=== PATIENT | male | born 1935 | race Caucasian/White ===

== ENCOUNTER 2017-05-12 05:56 | Inpatient (IN) | payer MEDICARE, OTHER ==
[2017-05-12] MEDS: FUROSEMIDE 40 MG INJ IV ×2 (06:48→17:48)
[2017-05-12] MEDS: NITROGLYCERIN 2% 1 GM OINT PKT TD (06:48)
[2017-05-12 07:09] LABS: ADD MAN DIFF? NO
[2017-05-12 07:11] LABS: WHITE BLOOD COUNT 7.5 10^3/ul (4.8-10.8)
[2017-05-12 07:11] LABS: ABNORMAL IP MESSAGE 1; BASOPHILS % 0.3 % (0.0-2.0); HEMATOCRIT 29.4 % (42.0-52.0); HEMOGLOBIN 9.6 g/dl (14.0-18.0); LYMPHOCYTES # 0.6 10^3/ul (0.8-2.9); LYMPHOCYTES % 8.5 % (15.0-51.0); MEAN CORPUSCULAR HEMOGLOBIN 29.4 pg (29.0-33.0); MEAN CORPUSCULAR HGB CONC 32.7 g/dl (32.0-37.0); MEAN CORPUSCULAR VOLUME 89.9 fl (82.0-101.0); MEAN PLATELET VOLUME 11.6 fl (7.4-10.4); MONOCYTE # 0.6 10^3/ul (0.3-0.9); NEUTROPHIL # 6.3 10^3/ul (1.6-7.5); NEUTROPHILS % 82.8 % (39.0-77.0); PLATELET COUNT 91 10^3/UL (140-415); POSITIVE DIFF @See below; RED BLOOD COUNT 3.27 10^6/ul (4.70-6.10); RED CELL DISTRIBUTION WIDTH 15.3 % (11.5-14.5)
[2017-05-12 07:35] LABS: LACTIC ACID 1.7 mmol/L (0.5-2.0)
[2017-05-12] MEDS: ALBUTEROL 0.083% (NEB) 2.5 MG/3 ML AMP INH (07:36)
[2017-05-12 07:37] LABS: ADD UMIC NO; UR ASCORBIC ACID 40 mg/dL (NEGATIVE); UR BILIRUBIN (Dip) NEGATIVE (NEGATIVE); UR BLOOD (Dip) NEGATIVE (NEGATIVE); UR CLARITY SLIGHTLY CLOUDY (CLEAR); UR COLOR YELLOW (YELLOW); UR GLUCOSE (Dip) 2+ mg/dL (NEGATIVE); UR KETONES (Dip) TRACE mg/dL (NEGATIVE); UR LEUKOCYTE ESTERASE (Dip) NEGATIVE Leu/ul (NEGATIVE); UR NITRITE (Dip) NEGATIVE (NEGATIVE); UR RBC 1 /HPF (0-5); UR SPECIFIC GRAVITY (Dip) 1.015 (1.003-1.030); UR TOTAL PROTEIN (Dip) NEGATIVE (NEGATIVE); UR UROBILINOGEN (Dip) NEGATIVE (NEGATIVE); UR WBC 1 /HPF (0-5)
[2017-05-12 07:38] LABS: ALANINE AMINOTRANSFERASE 57 IU/L (13-69); ALBUMIN 3.6 g/dl (3.3-4.9); ALBUMIN/GLOBULIN RATIO 1.12; ALKALINE PHOSPHATASE 68 IU/L (42-121); ANION GAP 15 (8-16); ASPARTATE AMINO TRANSFERASE 54 IU/L (15-46); BILIRUBIN,INDIRECT 0.1 mg/dl (0-1.1); BILIRUBIN,TOTAL 0.1 mg/dl (0.2-1.3); BLOOD UREA NITROGEN 37 mg/dl (7-20); CALCIUM 8.2 mg/dl (8.4-10.2); CARBON DIOXIDE 24 mmol/L (21-31); CHLORIDE 104 mmol/L (97-110); CREATININE 1.53 mg/dl (0.61-1.24); GLUCOSE 261 mg/dl (70-220); SODIUM 138 mmol/L (135-144); TOTAL PROTEIN 6.8 g/dl (6.1-8.1)
[2017-05-12] MEDS: CEFTRIAXONE 1 GM/50 ML (PMX) 50 ML IVPB (07:43)
[2017-05-12 07:44] LABS: INR 1.32; PROTIME 16.6 Sec (11.9-14.9); PT RATIO 1.3
[2017-05-12 07:45] LABS: PARTIAL THROMBOPLASTIN TIME 42.5 Sec (25.0-35.0)
[2017-05-12 08:02] LABS: TROPONIN-I < 0.012 ng/ml (0.00-0.12)
[2017-05-12 08:22] LABS: B-TYPE NATRIURETIC PEPTIDE 1610 PG/ML (0-450)
[2017-05-12] MEDS: OSELTAMIVIR 75 MG CAP PO ×2 (08:41→20:44)
[2017-05-12] MEDS ORDERED: AMIODARONE 200 MG TAB PO (09:30)
[2017-05-12] MEDS ORDERED: NACL 0.9% 3 ML SYG IV (10:00)
[2017-05-12] MEDS ORDERED: DEXTROSE 50% 50 ML SYRINGE IV ×2 (10:00)
[2017-05-12] MEDS ORDERED: ACETAMINOPHEN 325 MG TAB PO (10:00)
[2017-05-12] MEDS ORDERED: BISACODYL (EC) 5 MG TAB PO (10:00)
[2017-05-12] MEDS ORDERED: HYDROCODONE/APAP (5/325) TAB PO (10:00)
[2017-05-12] MEDS ORDERED: GLUCOSE GEL 15 GRAM TUBE BUCCAL (10:00)
[2017-05-12] MEDS ORDERED: GLUCOSE GEL 15 GRAM TUBE PO ×2 (10:00)
[2017-05-12] MEDS ORDERED: morphine 2 MG INJ IV (10:00)
[2017-05-12] MEDS ORDERED: GLUCAGON 1 MG INJ IM (10:00)
[2017-05-12] MEDS ORDERED: ONDANSETRON 4 MG INJ IV (10:00)
[2017-05-12] MEDS: SERTRALINE 50 MG TAB PO (10:04)
[2017-05-12] MEDS: METOPROLOL 50 MG TAB PO ×2 (10:05→20:50)
[2017-05-12 10:12] LABS: ANISOCYTOSIS 1+ (0-0); BAND NEUTROPHILS #M 0.6 10^3/ul (0.0-0.6); BAND NEUTROPHILS % (M) 9 % (0-4); GIANT THROMBO% (M) 1 % (0-0); LYMPHOCYTES #M 0.2 10^3/ul (0.8-2.9); LYMPHOCYTES % (M) 3 % (15-51); MICROCYTOSIS 1+ (0-0); MONOCYTE #M 0.9 10^3/ul (0.3-0.9); MONOCYTES % (M) 13 % (0-11); PLATELET ESTIMATE DECREASED; POLYCHROMASIA 3+ (0-0); REACTIVE LYMPHOCYTES #M 0.1 10^3/ul (0.0-0.0); REACTIVE LYMPHOCYTES% (M) 2 % (0-0); SEG NEUT #M 5.5 10^3/ul (1.7-7.5); SEGMENTED NEUTROPHILS (M) % 73 % (39-77); SMUDGE%M 3 % (0-0)
[2017-05-12 10:38] LABS: LACTIC ACID 0.9 mmol/L (0.5-2.0)
[2017-05-12 10:39] LABS: URIC ACID 6.9 mg/dl (3.1-7.9)
[2017-05-12 10:55] LABS: SODIUM,URINE RANDOM 103 mmol/L (30-90)
[2017-05-12 10:55] LABS: POTASSIUM,URINE RANDOM 62.7 mmol/L (25-125)
[2017-05-12 10:59] LABS: CREATININE,URINE RANDOM 66.63 mg/dl (20-370)
[2017-05-12] MEDS: INSULIN ASPART [NOVOLOG] 3 ML PEN SC ×3 (12:00→20:43)
[2017-05-12] MEDS: GABAPENTIN 100 MG CAP GTB ×2 (12:29→20:38)
[2017-05-12] MEDS: ATORVASTATIN 20 MG TAB PO (20:38)
[2017-05-12] MEDS: APIXABAN 5 MG TABLET PO (20:39)
[2017-05-12] MEDS: AMIODARONE 200 MG TAB PO ×2 (20:39→20:52)
[2017-05-12] MEDS: INSULIN GLARGINE [LANtus] 3 ML PEN SC (20:41)
[2017-05-12] MEDS ORDERED: TAMSULOSIN (SR) 0.4 MG CAP PO (21:00)
[2017-05-13] MEDS: LORAZEPAM 2 MG INJ IV (02:04)
[2017-05-13] MEDS: ACCU-CHEK XX (02:06)
[2017-05-13] MEDS: FUROSEMIDE 40 MG INJ IV ×2 (06:36→17:18)
[2017-05-13] MEDS: LEVOTHYROXINE 25 MCG TAB PO (06:37)
[2017-05-13 06:44] LABS: ADD MAN DIFF? NO
[2017-05-13 06:54] LABS: ABNORMAL IP MESSAGE 1; BASOPHILS % 0.3 % (0.0-2.0); EOSINOPHILS % 0.3 % (0.0-7.0); HEMATOCRIT 26.8 % (42.0-52.0); HEMOGLOBIN 8.8 g/dl (14.0-18.0); LYMPHOCYTES # 1.2 10^3/ul (0.8-2.9); LYMPHOCYTES % 15.4 % (15.0-51.0); MEAN CORPUSCULAR HEMOGLOBIN 29.2 pg (29.0-33.0); MEAN CORPUSCULAR HGB CONC 32.8 g/dl (32.0-37.0); MEAN PLATELET VOLUME 11.4 fl (7.4-10.4); MONOCYTE # 0.8 10^3/ul (0.3-0.9); MONOCYTES % 10.4 % (0.0-11.0); NEUTROPHIL # 5.5 10^3/ul (1.6-7.5); NEUTROPHILS % 72.9 % (39.0-77.0); PLATELET COUNT 87 10^3/UL (140-415); POSITIVE DIFF @See below; RED BLOOD COUNT 3.01 10^6/ul (4.70-6.10); RED CELL DISTRIBUTION WIDTH 15.4 % (11.5-14.5)
[2017-05-13 06:54] LABS: WHITE BLOOD COUNT 7.5 10^3/ul (4.8-10.8)
[2017-05-13 07:20] LABS: ALANINE AMINOTRANSFERASE 364 IU/L (13-69); ALBUMIN 3.1 g/dl (3.3-4.9); ALBUMIN/GLOBULIN RATIO 1.06; ALKALINE PHOSPHATASE 53 IU/L (42-121); ANION GAP 13 (8-16); ASPARTATE AMINO TRANSFERASE 362 IU/L (15-46); BILIRUBIN,INDIRECT 0.3 mg/dl (0-1.1); BILIRUBIN,TOTAL 0.3 mg/dl (0.2-1.3); BLOOD UREA NITROGEN 42 mg/dl (7-20); CALCIUM 8.2 mg/dl (8.4-10.2); CARBON DIOXIDE 29 mmol/L (21-31); CHLORIDE 102 mmol/L (97-110); CHOL/HDL RATIO 2.4 RATIO; CHOLESTEROL 106 mg/dl (100-200); CREATININE 1.31 mg/dl (0.61-1.24); GLUCOSE 81 mg/dl (70-220); HDL CHOLESTEROL 43 mg/dl (31-75); LDL CHOLESTEROL,CALCULATED 47 mg/dl; MAGNESIUM 2.6 mg/dl (1.7-2.5); POTASSIUM 3.9 mmol/L (3.5-5.1); SODIUM 140 mmol/L (135-144); TRIGLYCERIDES 78 mg/dl (0-149)
[2017-05-13 07:28] LABS: B-TYPE NATRIURETIC PEPTIDE 5120 PG/ML (0-450)
[2017-05-13] MEDS: INSULIN ASPART [NOVOLOG] 3 ML PEN SC ×4 (08:00→21:00)
[2017-05-13] MEDS ORDERED: FINASTERIDE 5 MG TAB PO (09:00)
[2017-05-13] MEDS: OSELTAMIVIR 75 MG CAP PO ×2 (09:29→21:17)
[2017-05-13] MEDS: FOLIC ACID 1 MG TAB PO (09:29)
[2017-05-13] MEDS: SERTRALINE 50 MG TAB PO (09:29)
[2017-05-13] MEDS: METOPROLOL 50 MG TAB PO ×2 (09:29→21:18)
[2017-05-13] MEDS: GABAPENTIN 100 MG CAP GTB ×3 (09:31→21:17)
[2017-05-13] MEDS: TOLTERODINE 2 MG TAB PO (09:31)
[2017-05-13] MEDS: CLOPIDOGREL 75 MG TAB PO (09:31)
[2017-05-13] MEDS: DOCUSATE SODIUM 250 MG CAP PO (09:31)
[2017-05-13] MEDS: MEMANTINE 10 MG TAB PO (09:32)
[2017-05-13] MEDS: APIXABAN 5 MG TABLET PO ×2 (09:33→21:18)
[2017-05-13] MEDS ORDERED: hydrALAzine 20 MG INJ IV (12:00)
[2017-05-13] MEDS: ATORVASTATIN 20 MG TAB PO (21:17)
[2017-05-13] MEDS: AMIODARONE 200 MG TAB PO (21:17)
[2017-05-13] MEDS: INSULIN GLARGINE [LANtus] 3 ML PEN SC (21:19)
[2017-05-14] MEDS: ACCU-CHEK XX (02:00)
[2017-05-14 06:10] LABS: ADD MAN DIFF? NO
[2017-05-14 06:11] LABS: ABNORMAL IP MESSAGE 1; BASOPHILS % 0.1 % (0.0-2.0); HEMATOCRIT 26.1 % (42.0-52.0); HEMOGLOBIN 8.6 g/dl (14.0-18.0); LYMPHOCYTES # 0.9 10^3/ul (0.8-2.9); LYMPHOCYTES % 10.2 % (15.0-51.0); MEAN CORPUSCULAR HEMOGLOBIN 29.3 pg (29.0-33.0); MEAN CORPUSCULAR VOLUME 88.8 fl (82.0-101.0); MEAN PLATELET VOLUME 11.8 fl (7.4-10.4); MONOCYTE # 0.9 10^3/ul (0.3-0.9); MONOCYTES % 10.4 % (0.0-11.0); NEUTROPHIL # 6.8 10^3/ul (1.6-7.5); NEUTROPHILS % 78.7 % (39.0-77.0); PLATELET COUNT 98 10^3/UL (140-415); POSITIVE DIFF @See below; RED BLOOD COUNT 2.94 10^6/ul (4.70-6.10); RED CELL DISTRIBUTION WIDTH 15.1 % (11.5-14.5)
[2017-05-14 06:11] LABS: WHITE BLOOD COUNT 8.6 10^3/ul (4.8-10.8)
[2017-05-14] MEDS: FUROSEMIDE 40 MG INJ IV (06:17)
[2017-05-14] MEDS: LEVOTHYROXINE 25 MCG TAB PO (06:17)
[2017-05-14 07:03] LABS: ANION GAP 12 (8-16); BLOOD UREA NITROGEN 45 mg/dl (7-20); CALCIUM 8.3 mg/dl (8.4-10.2); CARBON DIOXIDE 29 mmol/L (21-31); CHLORIDE 101 mmol/L (97-110); CREATININE 1.19 mg/dl (0.61-1.24); GLUCOSE 186 mg/dl (70-220); MAGNESIUM 2.4 mg/dl (1.7-2.5); PHOSPHORUS 5.2 mg/dl (2.5-4.9); POTASSIUM 3.1 mmol/L (3.5-5.1); SODIUM 139 mmol/L (135-144)
[2017-05-14] MEDS: INSULIN ASPART [NOVOLOG] 3 ML PEN SC ×4 (08:32→20:29)
[2017-05-14] MEDS: AMIODARONE 200 MG TAB PO ×2 (09:00→20:53)
[2017-05-14] MEDS: METOPROLOL 50 MG TAB PO ×2 (09:00→20:54)
[2017-05-14] MEDS: DOCUSATE SODIUM 250 MG CAP PO (09:33)
[2017-05-14] MEDS: CLOPIDOGREL 75 MG TAB PO (09:33)
[2017-05-14] MEDS: FOLIC ACID 1 MG TAB PO (09:34)
[2017-05-14] MEDS: APIXABAN 5 MG TABLET PO ×2 (09:34→20:50)
[2017-05-14] MEDS: MEMANTINE 10 MG TAB PO (09:34)
[2017-05-14] MEDS: SERTRALINE 50 MG TAB PO (09:34)
[2017-05-14] MEDS: OSELTAMIVIR 75 MG CAP PO ×2 (09:35→20:50)
[2017-05-14] MEDS: TOLTERODINE 2 MG TAB PO (09:35)
[2017-05-14] MEDS: GABAPENTIN 100 MG CAP GTB ×3 (09:35→20:50)
[2017-05-14] MEDS ORDERED: ONDANSETRON 4 MG INJ IV (17:00)
[2017-05-14] MEDS ORDERED: POTASSIUM CHLORIDE 30 MEQ in SOD CHLORIDE 0.9% 150 ML IVPB (17:30)
[2017-05-14] MEDS: SPIRONOLACTONE 25 MG TAB PO (17:57)
[2017-05-14] MEDS: POTASSIUM CHLORIDE (SR) 20 MEQ TAB PO (17:57)
[2017-05-14] MEDS: INSULIN GLARGINE [LANtus] 3 ML PEN SC (20:30)
[2017-05-14] MEDS: ATORVASTATIN 20 MG TAB PO (20:50)
[2017-05-14] MEDS: POTASSIUM CHLORIDE 30 MEQ in DEXTROSE 5% 250 ML IVPB (20:50)
[2017-05-15] MEDS: ACCU-CHEK XX (02:12)
[2017-05-15] MEDS: LEVOTHYROXINE 25 MCG TAB PO (06:40)
[2017-05-15 07:28] LABS: ADD MAN DIFF? NO
[2017-05-15 07:34] LABS: BASOPHILS % 0.1 % (0.0-2.0); EOSINOPHILS % 0.2 % (0.0-7.0); HEMATOCRIT 27.3 % (42.0-52.0); HEMOGLOBIN 9.2 g/dl (14.0-18.0); LYMPHOCYTES # 1.8 10^3/ul (0.8-2.9); LYMPHOCYTES % 16.9 % (15.0-51.0); MEAN CORPUSCULAR HEMOGLOBIN 29.7 pg (29.0-33.0); MEAN CORPUSCULAR HGB CONC 33.7 g/dl (32.0-37.0); MEAN CORPUSCULAR VOLUME 88.1 fl (82.0-101.0); MEAN PLATELET VOLUME 10.8 fl (7.4-10.4); MONOCYTE # 1.2 10^3/ul (0.3-0.9); MONOCYTES % 11.4 % (0.0-11.0); NEUTROPHIL # 7.6 10^3/ul (1.6-7.5); NEUTROPHILS % 70.8 % (39.0-77.0); PLATELET COUNT 112 10^3/UL (140-415); RED CELL DISTRIBUTION WIDTH 15.3 % (11.5-14.5)
[2017-05-15 07:34] LABS: WHITE BLOOD COUNT 10.7 10^3/ul (4.8-10.8)
[2017-05-15] MEDS: INSULIN ASPART [NOVOLOG] 3 ML PEN SC ×4 (08:00→20:29)
[2017-05-15] MEDS: AMIODARONE 200 MG TAB PO ×2 (09:00→20:26)
[2017-05-15] MEDS: METOPROLOL 50 MG TAB PO ×2 (09:00→20:27)
[2017-05-15] MEDS: SERTRALINE 50 MG TAB PO (09:39)
[2017-05-15] MEDS: DOCUSATE SODIUM 250 MG CAP PO (09:39)
[2017-05-15] MEDS: SPIRONOLACTONE 25 MG TAB PO (09:39)
[2017-05-15] MEDS: TOLTERODINE 2 MG TAB PO (09:39)
[2017-05-15] MEDS: OSELTAMIVIR 75 MG CAP PO ×2 (09:39→20:26)
[2017-05-15] MEDS: FOLIC ACID 1 MG TAB PO (09:40)
[2017-05-15] MEDS: CLOPIDOGREL 75 MG TAB PO (09:40)
[2017-05-15] MEDS: FAMOTIDINE 20 MG TAB PO (09:40)
[2017-05-15] MEDS: GABAPENTIN 100 MG CAP GTB ×3 (09:40→20:25)
[2017-05-15] MEDS: APIXABAN 5 MG TABLET PO ×2 (09:41→20:27)
[2017-05-15] MEDS: FUROSEMIDE 40 MG INJ IV (09:42)
[2017-05-15] MEDS: MEMANTINE 10 MG TAB PO (10:03)
[2017-05-15 10:49] LABS: ALANINE AMINOTRANSFERASE 489 IU/L (13-69); ALBUMIN 3.5 g/dl (3.3-4.9); ALBUMIN/GLOBULIN RATIO 1.25; ALKALINE PHOSPHATASE 61 IU/L (42-121); ANION GAP 12 (8-16); ASPARTATE AMINO TRANSFERASE 363 IU/L (15-46); BILIRUBIN,INDIRECT 0.4 mg/dl (0-1.1); BILIRUBIN,TOTAL 0.4 mg/dl (0.2-1.3); BLOOD UREA NITROGEN 43 mg/dl (7-20); CALCIUM 8.1 mg/dl (8.4-10.2); CARBON DIOXIDE 29 mmol/L (21-31); CHLORIDE 101 mmol/L (97-110); CREATININE 1.13 mg/dl (0.61-1.24); GLUCOSE 64 mg/dl (70-220); MAGNESIUM 2.4 mg/dl (1.7-2.5); POTASSIUM 3.4 mmol/L (3.5-5.1); SODIUM 139 mmol/L (135-144); TOTAL PROTEIN 6.3 g/dl (6.1-8.1)
[2017-05-15 11:49] LABS: PHOSPHORUS 3.4 mg/dl (2.5-4.9)
[2017-05-15 12:48] LABS: B-TYPE NATRIURETIC PEPTIDE 2550 PG/ML (0-450)
[2017-05-15] MEDS: POTASSIUM CHLORIDE (SR) 20 MEQ TAB PO ×2 (13:05→18:08)
[2017-05-15] MEDS ORDERED: BISACODYL (EC) 5 MG TAB PO (15:30)
[2017-05-15] MEDS: MAGNESIUM HYDROXIDE 30ML CUP PO (18:09)
[2017-05-15] MEDS: ATORVASTATIN 20 MG TAB PO (20:26)
[2017-05-15] MEDS: INSULIN GLARGINE [LANtus] 3 ML PEN SC (20:28)
[2017-05-16] MEDS: ACCU-CHEK XX (02:00)
[2017-05-16] MEDS: LEVOTHYROXINE 25 MCG TAB PO (05:46)
[2017-05-16 07:23] LABS: ADD MAN DIFF? NO; HAAIG REFLEX REFLEX FILED
[2017-05-16 07:26] LABS: WHITE BLOOD COUNT 8.6 10^3/ul (4.8-10.8)
[2017-05-16 07:26] LABS: BASOPHILS % 0.1 % (0.0-2.0); EOSINOPHILS # 0.1 10^3/ul (0.0-0.5); EOSINOPHILS % 0.8 % (0.0-7.0); HEMOGLOBIN 9.6 g/dl (14.0-18.0); LYMPHOCYTES # 1.6 10^3/ul (0.8-2.9); MEAN CORPUSCULAR HEMOGLOBIN 28.9 pg (29.0-33.0); MEAN CORPUSCULAR HGB CONC 33.1 g/dl (32.0-37.0); MEAN CORPUSCULAR VOLUME 87.3 fl (82.0-101.0); MEAN PLATELET VOLUME 10.7 fl (7.4-10.4); MONOCYTE # 0.8 10^3/ul (0.3-0.9); NEUTROPHIL # 6.2 10^3/ul (1.6-7.5); NEUTROPHILS % 71.5 % (39.0-77.0); PLATELET COUNT 125 10^3/UL (140-415); RED BLOOD COUNT 3.32 10^6/ul (4.70-6.10); RED CELL DISTRIBUTION WIDTH 14.7 % (11.5-14.5)
[2017-05-16] MEDS: INSULIN ASPART [NOVOLOG] 3 ML PEN SC ×4 (08:00→20:18)
[2017-05-16 08:05] LABS: ALANINE AMINOTRANSFERASE 460 IU/L (13-69); ALBUMIN 2.9 g/dl (3.3-4.9); ALBUMIN/GLOBULIN RATIO 1.11; ALKALINE PHOSPHATASE 63 IU/L (42-121); ANION GAP 9 (8-16); ASPARTATE AMINO TRANSFERASE 332 IU/L (15-46); BILIRUBIN,INDIRECT 0.5 mg/dl (0-1.1); BILIRUBIN,TOTAL 0.5 mg/dl (0.2-1.3); BLOOD UREA NITROGEN 36 mg/dl (7-20); CALCIUM 8.1 mg/dl (8.4-10.2); CARBON DIOXIDE 30 mmol/L (21-31); CHLORIDE 103 mmol/L (97-110); CREATININE 0.93 mg/dl (0.61-1.24); GLUCOSE 121 mg/dl (70-220); POTASSIUM 4.3 mmol/L (3.5-5.1); SODIUM 138 mmol/L (135-144); TOTAL PROTEIN 5.5 g/dl (6.1-8.1)
[2017-05-16 08:05] LABS: PHOSPHORUS 2.6 mg/dl (2.5-4.9)
[2017-05-16] MEDS: TOLTERODINE 2 MG TAB PO (08:32)
[2017-05-16] MEDS: SPIRONOLACTONE 25 MG TAB PO (08:34)
[2017-05-16] MEDS: GABAPENTIN 100 MG CAP GTB ×3 (08:34→20:11)
[2017-05-16] MEDS: FOLIC ACID 1 MG TAB PO (08:34)
[2017-05-16] MEDS: FAMOTIDINE 20 MG TAB PO (08:34)
[2017-05-16] MEDS: AMIODARONE 200 MG TAB PO ×2 (08:34→20:12)
[2017-05-16] MEDS: SERTRALINE 50 MG TAB PO (08:34)
[2017-05-16] MEDS: MEMANTINE 10 MG TAB PO (08:34)
[2017-05-16] MEDS: CLOPIDOGREL 75 MG TAB PO (08:34)
[2017-05-16 08:35] LABS: HEPATITIS B SURFACE ANTIGEN NEGATIVE (NEGATIVE)
[2017-05-16] MEDS: OSELTAMIVIR 75 MG CAP PO ×2 (08:35→20:12)
[2017-05-16] MEDS: APIXABAN 5 MG TABLET PO ×2 (08:35→20:12)
[2017-05-16] MEDS: FUROSEMIDE 40 MG INJ IV (08:35)
[2017-05-16] MEDS: METOPROLOL 50 MG TAB PO ×2 (08:36→20:11)
[2017-05-16] MEDS: DOCUSATE SODIUM 250 MG CAP PO (08:41)
[2017-05-16 08:53] LABS: HEPATITIS B CORE ANTIBODY REACTIVE (NEGATIVE); HEPATITIS C VIRAL ANTIBODY NEGATIVE (NEGATIVE)
[2017-05-16 15:32] LABS: ADD UMIC YES; UR ASCORBIC ACID NEGATIVE (NEGATIVE); UR BILIRUBIN (Dip) NEGATIVE (NEGATIVE); UR BLOOD (Dip) 1+ mg/dL (NEGATIVE); UR CLARITY CLEAR (CLEAR); UR COLOR YELLOW (YELLOW); UR GLUCOSE (Dip) NEGATIVE (NEGATIVE); UR KETONES (Dip) NEGATIVE (NEGATIVE); UR LEUKOCYTE ESTERASE (Dip) NEGATIVE Leu/ul (NEGATIVE); UR NITRITE (Dip) NEGATIVE (NEGATIVE); UR RBC 10 /HPF (0-5); UR TOTAL PROTEIN (Dip) NEGATIVE (NEGATIVE); UR UROBILINOGEN (Dip) NEGATIVE (NEGATIVE); UR WBC 1 /HPF (0-5)
[2017-05-16] MEDS: ATORVASTATIN 20 MG TAB PO (20:12)
[2017-05-16] MEDS: INSULIN GLARGINE [LANtus] 3 ML PEN SC (20:16)
[2017-05-17] MEDS: INSULIN ASPART [NOVOLOG] 3 ML PEN SC ×2 (00:50→12:17)
[2017-05-17] MEDS: ACCU-CHEK XX (00:51)
[2017-05-17] MEDS: LEVOTHYROXINE 25 MCG TAB PO (06:08)
[2017-05-17 07:28] LABS: ADD MAN DIFF? NO
[2017-05-17 07:35] LABS: WHITE BLOOD COUNT 9.8 10^3/ul (4.8-10.8)
[2017-05-17 07:35] LABS: BASOPHILS % 0.1 % (0.0-2.0); EOSINOPHILS # 0.1 10^3/ul (0.0-0.5); EOSINOPHILS % 0.9 % (0.0-7.0); HEMATOCRIT 30.5 % (42.0-52.0); HEMOGLOBIN 10.2 g/dl (14.0-18.0); LYMPHOCYTES # 1.9 10^3/ul (0.8-2.9); LYMPHOCYTES % 19.4 % (15.0-51.0); MEAN CORPUSCULAR HEMOGLOBIN 29.1 pg (29.0-33.0); MEAN CORPUSCULAR HGB CONC 33.4 g/dl (32.0-37.0); MEAN CORPUSCULAR VOLUME 87.1 fl (82.0-101.0); MEAN PLATELET VOLUME 10.6 fl (7.4-10.4); MONOCYTE # 0.8 10^3/ul (0.3-0.9); MONOCYTES % 8.1 % (0.0-11.0); NEUTROPHIL # 6.9 10^3/ul (1.6-7.5); NEUTROPHILS % 70.2 % (39.0-77.0); PLATELET COUNT 157 10^3/UL (140-415); RED CELL DISTRIBUTION WIDTH 14.7 % (11.5-14.5)
[2017-05-17 07:53] LABS: ALANINE AMINOTRANSFERASE 413 IU/L (13-69); ALBUMIN 3.2 g/dl (3.3-4.9); ALBUMIN/GLOBULIN RATIO 1.06; ALKALINE PHOSPHATASE 66 IU/L (42-121); ANION GAP 12 (8-16); ASPARTATE AMINO TRANSFERASE 233 IU/L (15-46); BILIRUBIN,INDIRECT 0.5 mg/dl (0-1.1); BILIRUBIN,TOTAL 0.5 mg/dl (0.2-1.3); BLOOD UREA NITROGEN 32 mg/dl (7-20); CALCIUM 8.4 mg/dl (8.4-10.2); CARBON DIOXIDE 27 mmol/L (21-31); CHLORIDE 103 mmol/L (97-110); CREATININE 0.93 mg/dl (0.61-1.24); GLUCOSE 108 mg/dl (70-220); POTASSIUM 4.1 mmol/L (3.5-5.1); SODIUM 138 mmol/L (135-144); TOTAL PROTEIN 6.2 g/dl (6.1-8.1)
[2017-05-17] MEDS: FUROSEMIDE 40 MG INJ IV (08:20)
[2017-05-17] MEDS: GABAPENTIN 100 MG CAP GTB ×2 (08:20→12:13)
[2017-05-17] MEDS: CLOPIDOGREL 75 MG TAB PO (08:20)
[2017-05-17] MEDS: APIXABAN 5 MG TABLET PO (08:20)
[2017-05-17] MEDS: MEMANTINE 10 MG TAB PO (08:21)
[2017-05-17] MEDS: AMIODARONE 200 MG TAB PO (08:21)
[2017-05-17] MEDS: FOLIC ACID 1 MG TAB PO (08:21)
[2017-05-17] MEDS: SERTRALINE 50 MG TAB PO (08:21)
[2017-05-17] MEDS: TOLTERODINE 2 MG TAB PO (08:21)
[2017-05-17] MEDS: FAMOTIDINE 20 MG TAB PO (08:21)
[2017-05-17] MEDS: SPIRONOLACTONE 25 MG TAB PO (08:21)
[2017-05-17] MEDS: OSELTAMIVIR 75 MG CAP PO (08:21)
[2017-05-17] MEDS: DOCUSATE SODIUM 250 MG CAP PO (08:21)
[2017-05-17] MEDS: METOPROLOL 50 MG TAB PO (08:22)
== END 2017-05-17 14:00 | disposition home health service (06) | DRG 291 ==
LOC: TEL 05-16 20:55 → E/R 05:56 → MS4 08:52
DX: I13.0 Hypertensive heart and chronic kidney disease with heart failure and stage 1 through stage 4 chronic kidney disease, or unspecified chronic kidney disease (principal); J10.08 Influenza due to other identified influenza virus with other specified pneumonia; N17.9 Acute kidney failure, unspecified; J12.9 Viral pneumonia, unspecified; D69.6 Thrombocytopenia, unspecified; E11.22 Type 2 diabetes mellitus with diabetic chronic kidney disease; F03.90 Unspecified dementia, unspecified severity, without behavioral disturbance, psychotic disturbance, mood disturbance, and anxiety; F05 Delirium due to known physiological condition; I50.33 Acute on chronic diastolic (congestive) heart failure; I48.0 Paroxysmal atrial fibrillation; F32.9 Major depressive disorder, single episode, unspecified; R79.89 Other specified abnormal findings of blood chemistry; R11.10 Vomiting, unspecified; N18.9 Chronic kidney disease, unspecified; E87.6 Hypokalemia; D64.9 Anemia, unspecified; I25.10 Atherosclerotic heart disease of native coronary artery without angina pectoris; I16.0 Hypertensive urgency; I48.2 Chronic atrial fibrillation; E03.9 Hypothyroidism, unspecified; Z79.01 Long term (current) use of anticoagulants; Z79.82 Long term (current) use of aspirin; Z95.1 Presence of aortocoronary bypass graft; Z79.84 Long term (current) use of oral hypoglycemic drugs; Z79.02 Long term (current) use of antithrombotics/antiplatelets
CPT/HCPCS: 36415; 71010; 76705; 76775; 80048; 80053; 80061; 81001; 81003; 82436; 82540; 82962; 83605; 83735; 83880; 84100; 84133; 84155; 84300; 84443; 84484; 84560; 85025; 85610; 85730; 86704; 86709; 86803; 86850; 86900; 86901; 87040; 87086; 87340; 87400; 92526; 92610; 93005; 93306; 94664; 96372; 96374; 96375; 97162; 97167; 99291-25

== ENCOUNTER 2018-07-27 15:35 | Emergency (ER) | payer MEDICARE, OTHER ==
[2018-07-27] MEDS: SOD CHLORIDE 0.9% 500 ML IV (16:23)
[2018-07-27] MEDS: NICARDipine HCL 30 MG CAPSULE PO (16:30)
[2018-07-27 16:56] LABS: ADD MAN DIFF? NO
[2018-07-27 17:00] LABS: BASOPHILS % 0.5 % (0.0-2.0); EOSINOPHILS # 0.1 10^3/ul (0.0-0.5); EOSINOPHILS % 1.6 % (0.0-7.0); HEMATOCRIT 36.5 % (42.0-52.0); HEMOGLOBIN 12.2 g/dl (14.0-18.0); LYMPHOCYTES # 1.6 10^3/ul (0.8-2.9); MEAN CORPUSCULAR HEMOGLOBIN 29.4 pg (29.0-33.0); MEAN CORPUSCULAR HGB CONC 33.4 g/dl (32.0-37.0); MEAN PLATELET VOLUME 10.6 fl (7.4-10.4); MONOCYTE # 0.6 10^3/ul (0.3-0.9); MONOCYTES % 7.4 % (0.0-11.0); NEUTROPHIL # 5.6 10^3/ul (1.6-7.5); NEUTROPHILS % 70.1 % (39.0-77.0); PLATELET COUNT 148 10^3/UL (140-415); RED BLOOD COUNT 4.15 10^6/ul (4.70-6.10); RED CELL DISTRIBUTION WIDTH 14.1 % (11.5-14.5)
[2018-07-27 17:17] LABS: ANION GAP 11 (5-13); BLOOD UREA NITROGEN 36 mg/dl (7-20); CALCIUM 9.2 mg/dl (8.4-10.2); CARBON DIOXIDE 26 mmol/L (21-31); CHLORIDE 103 mmol/L (97-110); CREATININE 1.27 mg/dl (0.61-1.24); GLUCOSE 131 mg/dl (70-220); POTASSIUM 4.9 mmol/L (3.5-5.1); SODIUM 140 mmol/L (135-144)
== END 2018-07-27 18:11 | disposition home or self-care (01) ==
LOC: E/R 15:35
DX: R42 Dizziness and giddiness (principal); I10 Essential (primary) hypertension; E11.9 Type 2 diabetes mellitus without complications; Z79.01 Long term (current) use of anticoagulants; Z79.84 Long term (current) use of oral hypoglycemic drugs
CPT/HCPCS: 36415; 70450; 80048; 85025; 93005; 99285-25